=== PATIENT | female | born 1985 | race Caucasian/White ===

== ENCOUNTER 2022-07-01 11:56 | Emergency (ER) | payer OTHER ==
--- OUTSIDE RECORDS SUMMARY | 2022-07-01 12:00 | XMS REPORT | Continuity of Care Document ---
:1985 Author Organization [facility] t Address [address] [place] [address] Care Team Providers Name Role Phone Starr Tabares Attending Clinician Unavailable Starr Tabares Admitting Clinician Unavailable Payers Payer Name Policy Type Policy Number Effective Date Expiration Date S ource Problems This patient has no known problems. Allergies, Adverse Reactions, Alerts Allergy Allergy Status Severity Reaction(s) Onset Inactive Treating Comm ents Source Name Type Date Date Clinician penicill DA Active [place] HIVES 2020-0 [facility] penicill DA Active MO 2020-0 [facility] 00 [facility] penicill DA Active MO 2015-0 [facility]- [facility] 00 [facility] penicill DA Active MO HIVES 2015-0 [facility] G 8-[facility] 00 [facility] Medications This patient has no known medications. Procedures Procedure Date / Time Performed Performing Clinician Mendy holm [id number] 2020-11-03 00:00:00 [facility] [id number] 2020-11-03 00:00:00 [facility] Encounters Start End Encounter Admission Attending Care Care Encounter Source Date/Time Date/Time Type Type Clinicians Facility Department ID 2020-11-19 [id number] 13:42:00 Starr Banda [facility] 2020-11-03 2020-11-05 [id number] [facility] 13:49:00 11:26:00 Starr 85 [facility] Results Test Description Test Time Test Comments Results Result Comments Source PLACENTA THIRD TRIMESTER 2020-11-07 16:45:00 Test Item Value Reference Range Interpretation Comme nts PLACENTA RUN THIRD DATE: 11/07/20 [facility] PAGE 1 RUN TIME: 1836 Specimen Inquiry RUN USER: INTERFACE TRIMESTER CORWIN (test code ENT: DARIUS RAZO CCT #: [id number] LOC: RAKEL U #: [id number] AGE/SX: 35/F ROOM: [id number] RE11/03/20REG DR: Starr Tabares MD : 84 BED: A DIS: 11/05/20 STATUS: DIS IN TLOC: SPEC #: [id number] RECD: 11/06/20 STATUS: SARAH KURTZ #: [id number] HERSON: 11/03/20- SUBM DR: Starr Tabares MD ENTERED: 0 11/06/20 SP TYPE: PLACIII OTHR DR: ORDERED: LEVEL V SURGICA CODES: [id number] - PLACENTA, NO S PROCEDURES: LEVEL V SURGICA (Incomplete) TISSUES: PLACENTA, NOS - PLACENTA CLINICAL HISTORY 35 year old, IUP @ 37.6 weeks, vaginal delivery, nonreassuring monitoring, meconium (krish) F INAL DIAGNOSIS Placenta, 37.6 weeks gestational age, vaginal delivery: - third trimester placenta, 443 gms (35th percentile) - meconium macrophages within membranes - increased syncyt ial knots consistent with maternal vascular malperfusion - trivascular umbilical cord a nd membranes free of inflammation CPT: 26743 [facility] GROSS DESCRIPTION The specimen was received in a container, labeled with the patient's name, unit number and designated "place nta". The following attributes are observed: Cord insertion: 3 cm from margin Cord length: 36 cm Number of vessels: 3 Cord color: Blue-mccarthy and slightly green Other cord findings: None Fe edwar surface findings: Blue-green, wrinkled, glistening Vasculature: Unremarkable blood vasculatu re Membranes rupture site: At the margin Membrane color: Green-mccarthy Other membrane findings: John i-translucent The trimmed placental weight: 443 gm Disk measurement: 19 x 15 x 3.2 cm in greatest dimension Accessory lobes: None CONTINUED ON NEXT PAGE RUN DATE: 11/07/20 [facility] PAGE 2 RUN TIME: 1835 Specimen Inquiry RUN USER: INTERFACE SPEC #: [id number] PATIENT: DARIUS RAZO #[id number] (Continued) ------- GROSS DESCRIPTION (Skyler wylie) Maternal surface: Lobulated and intact Parenchyma: Red, beefy, and spongy Parenchyma lesions: None Cassettes: A1 through A4 ayde/tammie 11/06/20 ---- Signed Bre Leggett MD 11/07/20 1645 END OF REPORT CAPILLARY BLOOD [id number] 19:09:00 Test Item Value Reference Range Interpretation Comments CAPILLARY BLOOD GAS PH (test code 7.141 7.35-7.45 LL = PHC) CAPILLARY BLOOD GAS PCO2 (test 66.1 mmHg code = PCO2C) CAPILLARY BLOOD GAS PO2 (test code 20.5 mmHg = PO2C) CBG HCO3 (test code = HCO3C) 22.0 meq/L CBG BASE EXCESS (test code = BEC) -8.1 CBG O2 SATURATION (test code = 21.7 % SATC) CAPILLARY BLOOD GAS TYPE (test CBLA code = TYPEC) CAPILLARY BLOOD GAS FIO2 (test 21.0 % code = FIO2C) CAPILLARY BLOOD [id number] 19:07:00 Test Item Value Reference Range Interpretation Comments CAPILLARY BLOOD GAS PH (test code 7.269 7.35-7.45 L = PHC) CAPILLARY BLOOD GAS PCO2 (test 49.0 mmHg code = PCO2C) CAPILLARY BLOOD GAS PO2 (test code 13.6 mmHg = PO2C) CBG HCO3 (test code = HCO3C) 21.9 meq/L CBG BASE EXCESS (test code = BEC) -5.3 CAPILLARY BLOOD GAS TYPE (test CBLV code = TYPEC) CAPILLARY BLOOD GAS FIO2 (test 21.0 % code = FIO2C) AG HEPATITIS B [id number] 18:04:00 Test Item Value Reference Range Interpretation Comments AG HEPATITIS B SURFACE (test code NONREACTIVE NONREACTIVE = HBSAG) IS CONSENT FORM SIGNED FOR HIV TESTING? YAB HEPATITIS C [id number] 18:04:00 Test Item Value Reference Range Interpretation Comments AB HEPATITIS C (test code = NONREACTIVE NONREACTIVE HCVAB) SIGNAL TO CUTOFF (test code = <0.02 <0.80 N CUTOFF) IS CONSENT FORM SIGNED FOR HIV TESTING? YAB [id number] 18:04:00 Test Item Value Reference Range Interpretation Comments AB TREPONEMA (test code = TREPAB) NONREACTIVE NONREACTIVE IS CONSENT FORM SIGNED FOR HIV TESTING? YAB HIV 1 18:04:00 Test Item Value Reference Range Interpretation Comments AB HIV 1 2 (test NONREACTIVE NONREACTIVE Done by [facility] code = BSM94QS) 4th Gen HIV Ag/Ab Combo Screen IS CONSENT FORM SIGNED FOR HIV TESTING? YAG HEPATITIS B [id number] 15:41:00 Test Item Value Reference Range Interpretation Comments AG HEPATITIS B SURFACE (test code NONREACTIVE NONREACTIVE = HBSAG) IS CONSENT FORM SIGNED FOR HIV TESTING? YAB HEPATITIS C [id number] 15:41:00 Test Item Value Reference Range Interpretation Comments AB HEPATITIS C (test code = HCVAB) NONREACTIVE SIGNAL TO CUTOFF (test code = CUTOFF) <0.80 IS CONSENT FORM SIGNED FOR HIV TESTING? YAB [id number] 15:41:00 Test Item Value Reference Range Interpretation Comments AB TREPONEMA (test code = TREPAB) NONREACTIVE NONREACTIVE IS CONSENT FORM SIGNED FOR HIV TESTING? YAB HIV 1 15:41:00 Test Item Value Reference Range Interpretation Comments AB HIV 1 2 (test code = JZG06WM) NONREACTIVE IS CONSENT FORM SIGNED FOR HIV TESTING? YCBC W/AUTO [id number] 15:02:00 Test Item Value Reference Range Interpretation Comments WHITE BLOOD CELL (test code = WBC) 18.8 K/mm3 6.5-12.3 H RED BLOOD CELL (test code = RBC) 4.92 M/mm3 3.51-4.69 H HEMOGLOBIN (test code = HGB) 12.7 g/dL 10.1-13.8 N HEMATOCRIT (test code = HCT) 39.1 % 32.5-41.8 N MEAN CELL VOLUME (test code = MCV) 79.5 fL 84.6-96.6 L MEAN CELL HGB (test code = MCH) 25.8 pg 27.3-33.9 L MEAN CELL HGB CONCETRATION (test 32.5 gm/dL 32.0-34.2 N code = MCHC) RED CELL DISTRIBUTION WIDTH (test 19.8 % 12.2-16.3 H code = RDW) PLATELET COUNT (test code = PLT) 424 K/mm3 134-363 H MEAN PLATELET VOLUME (test code = 11.9 fL 9.2-12.7 N MPV) NEUTROPHIL % (test code = NT%) 84.6 % 57.9-77.3 H LYMPHOCYTE % (test code = LY%) 10.1 % 14.5-29.7 L MONOCYTE % (test code = MO%) 4.0 % 3.6-10.2 N EOSINOPHIL % (test code = EO%) 0.6 % 0.0-3.0 N BASOPHIL % (test code = BA%) 0.2 % 0.1-0.9 N NEUTROPHIL # (test code = NT#) 15.9 K/mm3 LYMPHOCYTE # (test code = LY#) 1.9 K/mm3 MONOCYTE # (test code = MO#) 0.8 K/mm3 EOSINOPHIL # (test code = EO#) 0.12 K/mm3 BASOPHIL # (test code = BA#) 0.0 K/mm3 RBC MORPHOLOGY REQUIRED (test code NORMAL NORMAL = RBCM) PLATELET MORPHOLOGY REQUIRED (test NORMAL NORMAL code = PLTMR) COVID 19 Asymptomatic IH [id number] 14:44:00 Test Item Value Reference Range Interpretation Comments COVID 19 NEGATIVE NEGATIVE This test has b een Asymptomatic IH AG authorize d only for the (test code = detection ofpro teins from COVNONPUIAG) SARS-CoV-2, not for any other viruses orpathogens. Ne gative results should be treated as presumptive andconfirmed wi th a molecular assay , if necessary for patientmanageme nt. Negative result s do not rule out COVID- 19 andshould not b e used as the sole basis for treatment orpat ient management deci sions, including infec tion controldecision s. Negative result s should be considered i n thecontext of a patient's recent exposure s, history and thepresence of clinical signs and symptoms consis tent withCOVID-19. T his test has not been FD A cleared or approved; th e test hasbeen authori fanny by FDA under an Emerge ncy Use Authorization(E UA) for use by laborato nader certified under the CLIA thatmeet the re quirements to perform mode rate, high or waivedcomple xity tests. This delmy t is authorized for use at thePoint of Car e (POC), i.e., in patien t care settingsoperati ng under a CLIA Certificat e of Waiver, Certifi kristel ofCompliance, o r Certificate of Accreditation. This test is only authori zed for the duration of thedeclaration that circumstances e xist justifying theauthorizatio n of emergency use o f in vitro diagnostic test sfor detection and/o r diagnosis of CO VID-19 under Sudmssb69 4(b)(1) of the Act, 21 U.S .C. 360bbb-3(b)(1), unless theauthorizatio n is terminated or r evoked sooner.
[2022-07-01 12:59] LABS: Urine Blood 2+ (Negative); Urine Glucose Negative (Negative); Urine Protein 1+ (Negative); Urine Specific Gravity >=1.030 (1.005-1.030)
[2022-07-01 13:11] LABS: Absolute Lymphocytes (CBC) 1.3 K/uL (0.7-4.9); Hematocrit 38.2 % (36.0-45.0); Lymphocytes % 18.4 % (15.3-44.8); MCV 82.2 fL (80-100); MPV 7.8 fL (7.6-11.3); RBC Red Blood Cell Count 4.65 M/uL (3.86-4.86)
[2022-07-01 13:23] LABS: ALT/SGPT 15 U/L (13-56); AST/SGOT 11 U/L (15-37); Albumin 3.2 g/dL (3.4-5.0); Alkaline Phosphatase 73 U/L (45-117); BUN Blood Urea Nitrogen 13 mg/dL (7-18); Bicarbonate 28 mmol/L (21-32); Bilirubin Total 0.3 mg/dL (0.2-1.0); Glomerular Filtration Rate 101 ml/min (=/>90); Glucose Level 104 mg/dL (74-106); Magnesium 2.2 mg/dL (1.6-2.4); Potassium 3.8 mmol/L (3.5-5.1); Protein, Total 7.2 g/dL (6.4-8.2); Sodium Level 139 mmol/L (136-145)
[2022-07-01 13:26] LABS: Troponin High Sensitivity < 3.0 pg/mL (<58.9)
--- NOTE | 2022-07-01 14:23 | EDPHYS ---
Physician Documentation [facility] Name: Uzma Barcenas Age: 37 yrs Sex: Female : 1985 Arrival Date: 07/01/2022 Time: 11:59 Bed 14 Private MD: MARISSA Physician Bernabe Andersen HPI: 07/01 14:59 This 37 yrs old Female presents to ER via Ambulatory with complaints of syncope, kb fatigue. 14:59 The patient has experienced syncope. Onset: The symptoms/episode began/occurred 3 kb day(s) ago. Duration: This was a single episode. Context: the episode(s) was witnessed, by a significant other, , occurred at home, occurred while the patient was standing, Just prior to the episode the patient experienced no apparent symptoms. Associated injury: The patient did not suffer any apparent associated injury. Associated signs and symptoms: Pertinent positives: weakness, Fatigue, blood in stool. Current symptoms: Currently, the patient is not experiencing any symptoms. The patient has experienced similar episodes in the past. The patient has not recently seen a physician. Patient is a 37-year-old female with a history of ulcerative colitis who presents for fatigue and blood in her stool for a couple of weeks. States she had a syncopal episode on Friday so she came in today concerned about anemia. States she had gone from the hot tub to the shower, sat down on a chair that in the shower and when she stood up she had a syncopal episode. was in the shower with her and caught her so there were no injuries associated with the syncopal episode. states patient was out for about 10 seconds. Patient reports the blood in her stool is a common occurrence due to ulcerative colitis and her plan is to follow-up with Dr. Delgado for this. States she came in today to make sure she was not anemic.. 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 - Social history:: Smoking status: Patient denies any tobacco usage or history of. ROS: 15:13 Respiratory: Negative for shortness of breath, cough, wheezing, and pleuritic chest kb pain. 15:13 Constitutional: Positive for fatigue. 15:13 Abdomen/GI: Positive for rectal bleeding. 15:13 Neuro: Positive for syncope, weakness. 15:13 All other systems are negative. Exam: 14:13 Constitutional: This is a well developed, well nourished patient who is awake, alert, kb and in no acute distress. Head/Face: Normocephalic, atraumatic. ENT: Moist Mucous membranes Cardiovascular: Regular rate and rhythm with a normal S1 and S2. No gallops, murmurs, or rubs. No pulse deficits. Respiratory: Respirations even and unlabored. No increased work of breathing. Talking in full sentences Abdomen/GI: Soft, non-tender. No distention Skin: Warm, dry with normal turgor. Normal color. MS/ Extremity: Pulses equal, no cyanosis. Neurovascular intact. Full, normal range of motion. Neuro: Awake and alert, GCS 15, oriented to person, place, time, and situation. Moves all extremities. Normal gait. Psych: Awake, alert, with orientation to person, place and time. Behavior, mood, and affect are within normal limits. 14:13 ECG was reviewed by the Attending Physician. Vital Signs: 12:12 BP 102 / 61; Pulse 86; Resp 15; Temp 98.4; Pulse Ox 100% ; Weight 54.43 kg; Height 5 jl7 ft. (152.40 cm); Pain 4/10; 13:25 BP 94 / 62 LA Supine; Pulse 73; bc6 13:25 BP 100 / 61 LA Sitting; Pulse 70; bc6 13:25 BP 92 / 66 LA Standing; Pulse 89; bc6 13:51 BP 100 / 61; Pulse 69; Resp 16; Pulse Ox 97% on R/A; mb9 15:15 BP 121 / 84; Pulse 64; Resp 16; Pulse Ox 99% on R/A; mb9 12:12 Body Mass Index 23.44 (54.43 kg, 152.40 cm) jl7 MDM: 12:13 Patient medically screened. kb 15:17 Differential Diagnosis: GI bleed, idiopathic syncope, vasovagal episode, Anemia. Data kb reviewed: vital signs, nurses notes. Consideration of Admission/Observation Escalation of care including admission/observation considered. admission considered due to syncope but episode was 3 days ago and patient has no neurodeficits. Historians other than the Patient: Spouse/Significant Other: . Counseling: I had a detailed discussion with the patient and/or guardian regarding: the historical points, exam findings, and any diagnostic results supporting the discharge/admit diagnosis, lab results, the need for outpatient follow up, a family practitioner, a crime scene examiner, to return to the emergency department if symptoms worsen or persist or if there are any questions or concerns that arise at home. ED course: Patient is a 37-year-old female with a history of ulcerative colitis that has had fatigue and blood in stools for couple of weeks, syncopal episode on Friday. States she has no acute abdominal pain. Comes in to make sure she is not anemic. Upon exam patient has no abdominal tenderness and no neurodeficits. Respirations even unlabored, lung sounds clear. Serum labs and EKG done and reviewed. Patient educated to follow-up with Dr. Delgado and PCP at the [facility]. Patient nontoxic in appearance. Tolerating p.o. intake. In agreement with plan of care. Return precautions given and verbal understanding received.. 07/01 12:14 Order name: CBC with Diff 07/01 12:14 Order name: Magnesium 07/01 12:14 Order name: Protime (+inr) 07/01 12:14 Order name: Ptt, Activated 07/01 12:14 Order name: Troponin High Sensitivity 07/01 12:14 Order name: CMP 07/01 12:14 Order name: EKG; Complete Time: 12:14 07/01 12:59 Order name: Urine Dipstick-Ancillary; Complete Time: 13:00 EDMS 07/01 13:19 Order name: CBC with Automated Diff; Complete Time: 13:19 EDMS 07/01 13:26 Order name: Comprehensive Metabolic Panel; Complete Time: 13:28 EDMS 07/01 13:27 Order name: Troponin High Sensitivity; Complete Time: 13:28 EDMS 07/01 13:27 Order name: Magnesium; Complete Time: 13:28 EDMS 07/01 14:13 Order name: Urine --Ancillary (enter results) eb 07/01 14:21 Order name: Urine --Ancillary; Complete Time: 14:23 EDMS 07/01 12:14 Order name: Cardiac monitoring; Complete Time: 12:49 kb 07/01 12:14 Order name: EKG - Nurse/Tech; Complete Time: 13:23 kb 07/01 12:14 Order name: IV Saline Lock; Complete Time: 13:04 kb 07/01 12:14 Order name: Labs collected and sent; Complete Time: 13:04 kb 07/01 12:14 Order name: NPO; Complete Time: 12:49 kb 07/01 12:14 Order name: O2 Per Protocol; Complete Time: 12:49 kb 07/01 12:14 Order name: O2 Sat Monitoring; Complete Time: 12:49 kb 07/01 12:14 Order name: Urine Dipstick-Ancillary (obtain specimen); Complete Time: 13:04 kb 07/01 12:14 Order name: Orthostatics; Complete Time: 13:25 kb EC:13 Rate is 68 beats/min. Rhythm is regular. QRS [place] is Normal. NV interval is normal at kb 112 msec. QRS interval is normal at 72 msec. QT interval is normal at 414 msec. Administered Medications: No medications were administered Disposition: 15:46 Co-signature as Attending Physician, Bernabe Andersen MD I reviewed the patient's care rn provided by the Advanced Practice Provider and agree with the diagnosis and treatment plan. Disposition Summary: 07/01/22 14:22 Discharge Ordered Location: Home kb Condition: Stable kb Diagnosis - Syncope kb - Other fatigue kb Followup: kb - With: Emergency Department - When: As needed - Reason: Worsening of condition Followup: kb - With: Private Physician - When: 2 - 3 days - Reason: Recheck today's complaints, Continuance of care, Re-evaluation by your physician Discharge Instructions: - Discharge Summary Sheet kb - Fatigue kb - Syncope, [id number] kb Forms: - Medication Reconciliation Form kb - Thank You Letter kb - Antibiotic Education kb - Prescription Opioid Use kb Signatures: Dispatcher [employer] EDMS Agatha Cervantes, FARMWORKERS-C FARMWORKERS-Bernabe Verdugo MD MD rn Leal, Jahala, RN RN jl7
--- NOTE | 2022-07-01 14:23 | ER ---
Nurse's Notes [facility] Name: Uzma Barcenas Age: 37 yrs Sex: Female : 1985 Arrival Date: 07/01/2022 Time: 11:59 Bed 14 Private MD: Diagnosis: Syncope;Other fatigue Presentation: 07/01 12:11 Chief complaint: Patient states: Fatigue, abdominal pain, hx of UC, syncopal episode in jl7 shower 3 days ago, bright red rectal bleeding. Coronavirus screen: At this time, the client does not indicate any symptoms associated with coronavirus-19. Ebola Screen: No symptoms or risks identified at this time. Risk Assessment: Do you want to hurt yourself or someone else? Patient reports no desire to harm self or others. Onset of symptoms was June 29, 2022. 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 - Social history:: Smoking status: Patient denies any tobacco usage or history of. Screenin:16 [place] ED Fall Risk Assessment (Adult) History of falling in the last 3 months, mb9 including since admission Yes- physiologic fall (2 pts) Confusion or Disorientation No (0 pts) Intoxicated or Sedated No (0 pts) Impaired Gait No (0 pts) Mobility Assist Device Used No (0 pt) Altered Elimination No (0 pt) Score/Fall Risk Level 0 - 2 = Low Risk Oriented to surroundings, Maintained a safe environment, Educated pt \T\ family on fall prevention, incl call for assistance when getting out of bed. Abuse screen: Denies threats or abuse. Nutritional screening: No deficits noted. Tuberculosis screening: No symptoms or risk factors identified. Assessment: 12:08 Reassessment: MINDI Badillo in triage assessing pt. [facility] 12:48 Reassessment: pt brought back to ER room. mb9 13:00 General: Appears in no apparent distress. Behavior is calm, cooperative, appropriate mb9 for age. Pain: Complains of pain in abdomen. Neuro: Level of Consciousness is awake, alert, obeys commands, Oriented to person, place, time, situation, Appropriate for age. Neuro: Reports weakness. Cardiovascular: Capillary refill < 3 seconds is brisk Patient's skin is warm and dry. Rhythm is regular. Respiratory: Airway is patent Respiratory effort is even, unlabored, Respiratory pattern is regular, symmetrical. GI: Abdomen is flat, non-distended, Bowel sounds present X 4 quads. Abd is soft and non tender X 4 quads. : Urine is clear. EENT: No signs and/or symptoms were reported regarding the EENT system. Derm: Skin is intact, Skin is dry, Skin is normal, Skin temperature is cool. Musculoskeletal: Range of motion: intact in all extremities. 15:15 Reassessment: No changes from previously documented assessment. Patient and/or family mb9 updated on plan of care and expected duration. Pain level reassessed. Patient is alert, oriented x 3, equal unlabored respirations, skin warm/dry/pink. Patient states feeling better. Patient states symptoms have improved. Vital Signs: 12:12 BP 102 / 61; Pulse 86; Resp 15; Temp 98.4; Pulse Ox 100% ; Weight 54.43 kg; Height 5 jl7 ft. (152.40 cm); Pain 4/10; 13:25 BP 94 / 62 LA Supine; Pulse 73; bc6 13:25 BP 100 / 61 LA Sitting; Pulse 70; bc6 13:25 BP 92 / 66 LA Standing; Pulse 89; bc6 13:51 BP 100 / 61; Pulse 69; Resp 16; Pulse Ox 97% on R/A; mb9 15:15 BP 121 / 84; Pulse 64; Resp 16; Pulse Ox 99% on R/A; mb9 12:12 Body Mass Index 23.44 (54.43 kg, 152.40 cm) jl7 ED Course: 11:59 Patient arrived in ED. rg4 12:06 Agatha Cervantes [facility]-C [facility]. kb 12:06 Bernabe Andersen MD is Attending Physician. kb 12:12 Triage completed. jl7 12:12 Arm band placed on right wrist. jl7 12:19 Faiza Willis, RN is Primary Nurse. mb9 13:04 CBC with Diff Sent. mb9 13:04 Magnesium Sent. mb9 13:04 Protime (+inr) Sent. mb9 13:04 Ptt, Activated Sent. mb9 13:04 Troponin High Sensitivity Sent. mb9 13:12 Inserted saline lock: 22 gauge in right antecubital area, using aseptic technique. bc6 15:19 No provider procedures requiring assistance completed. IV discontinued, intact, mb9 bleeding controlled, No redness/swelling at site. Pressure dressing applied. Administered Medications: No medications were administered Outcome: 14:22 Discharge ordered by MD. kb 15:20 Discharged to home ambulatory. mb9 15:20 Condition: stable 15:20 Discharge instructions given to patient, Instructed on discharge instructions, follow up and referral plans. Demonstrated understanding of instructions, follow-up care. 15:21 Patient left the ED. mb9 Signatures: Agatha Cervantes, TELESALES MANAGER-C TELESALES MANAGER-Gilma Arreguin rg4 Loli Barrett RN RN jl7 Faiza Willis, RN RN mb9 Jennifer Lubin [facility]
[2022-07-01 15:42] LABS: Protime INR 1.02
[2022-07-01 16:36] VITALS: TEMP 98.4
--- NOTE | 2022-07-01 16:36 | EKG ---
Test Date: 2022-07-01 Test Time: 13:19:44 Home Housekeeper: JULIANA MEASUREMENT RESULTS: Intervals: Rate: 68 NH: 112 QRSD: 72 QT: 390 QTc: 414 [place]: P: -5 NH: 112 QRS: 72 T: 57 INTERPRETIVE STATEMENTS: Normal sinus rhythm Normal ECG No previous ECG available for comparison Electronically Signed On 07-01-22 16:36:05 MOTOR MECHANIC by William Palacios
[2022-07-01 16:44] VITALS: BP 121/84; O2SAT 99
== END 2022-07-01 15:21 | disposition home or self-care (01) ==
LOC: ER 11:56
DX: R55 Syncope and collapse (principal); R53.83 Other fatigue; K51.90 Ulcerative colitis, unspecified, without complications; Z88.0 Allergy status to penicillin; Z88.5 Allergy status to narcotic agent
CPT/HCPCS: 36415; 80053; 81003; 81025; 83735; 84484; 85025; 85610; 85730; 93005; 99283

== ENCOUNTER 2022-09-30 06:55 | Day surgery (SDC) | payer OTHER ==
[2022-09-26 14:02] LABS: Absolute Lymphocytes (CBC) 1.5 K/uL (0.7-4.9); Hematocrit 36.4 % (36.0-45.0); Lymphocytes % 24.7 % (15.3-44.8); RBC Red Blood Cell Count 4.73 M/uL (3.86-4.86)
[2022-09-26 14:30] LABS: Albumin 3.4 g/dL (3.4-5.0); Bilirubin Direct 0.1 mg/dL (0-0.2); Bilirubin Indirect, Calculated 0.3 mg/dL (0.2-0.8); Bilirubin Total 0.4 mg/dL (0.2-1.0); Potassium 3.6 mEq/L (3.5-5.1); Protein, Total 7.8 g/dL (6.4-8.2)
[2022-09-30] MEDS ORDERED: Ringers Lactate 1,000 ML IV ONE ×2 (07:42→09:32)
[2022-09-30 08:10] LABS: Urine Specific Gravity/Preg >1.030 (1.005-1.030)
[2022-09-30] MEDS: CEFOXITIN SODIUM 1 GM/VIAL ONE ×2 (08:12→08:29)
[2022-09-30] MEDS ORDERED: FENTANYL CITR 100 MCG/2 ML ONE (08:25)
[2022-09-30] MEDS ORDERED: dexAMETHasone 10 MG/ML VIAL ONE (08:26)
[2022-09-30] MEDS ORDERED: LIDOCAINE 2% MPF 5 ML VIAL ONE (08:26)
[2022-09-30] MEDS ORDERED: ROCURONIUM 50 MG/5 ML VIAL IV ONE (08:26)
[2022-09-30] MEDS ORDERED: KETOROLAC 30 MG/ML INJ ONE (08:26)
[2022-09-30] MEDS ORDERED: ONDANSETRON 4 MG/2 ML VIAL ONE (08:27)
[2022-09-30] MEDS ORDERED: propofoL 200 MG/20 ML VIAL IV ONE (08:27)
[2022-09-30] MEDS ORDERED: MIDAZOLAM HCL 2 MG/2 ML INJ ONE (08:27)
[2022-09-30] MEDS ORDERED: NS 0.9% VIAL 10 ML ONE (09:08)
[2022-09-30] MEDS ORDERED: GLYCOPYRROLATE 0.2 MG/ML SYR ONE (09:25)
[2022-09-30] MEDS ORDERED: NEOSTIGMINE 1 MG/ML -10 ML VIAL ONE (09:26)
--- NOTE | 2022-09-30 09:31 | P.OP ---
Date of Service: 09/30/22 Preop diagnosis: Chronic cholecystitis, biliary dyskinesia Postop diagnosis: Same with adhesions Procedure performed: Laparoscopic cholecystectomy and lysis of additions Surgeon: Silver Mcgowan MD Shuttle Car Operator: AARON Garcia Estimated blood loss: Minimal Specimen: Gallbladder Findings: As above Anesthesia: General Complications: None Drains: None Fluids and blood products: Nonapplicable Disposition: Recovery room Operative note: Patient brought to the OR and placed in supine position. General anesthesia begun. Patient prepped and draped in the usual sterile fashion. Marcaine 0.5% infiltrated locally. 15 blade used to make a 1 cm infraumbilical midline incision. Subcutaneous tissue divided. Fascia identified and divided. #1 Vicryl stay suture placed. Peritoneal cavity entered with sharp and blunt dissection. 12 mm trocar placed into the peritoneal cavity under direct vision. Pneumoperitoneum established. Under direct vision, three 5 mm trocars placed. 1 trocar placed in the epigastric region just to the right of midline. 2 trocars placed in the right subcostal region. Laparoscopy revealed adhesions to the gallbladder which required lysis via cautery and blunt dissection. Fundus of the gallbladder retracted superiorly. Infundibulum identified and retracted inferolaterally. Cystic duct cystic artery clearly identified with blunt dissection. Clips placed and both structures divided. Gallbladder removed from the liver bed utilizing cautery. Gallbladder retrieved through the umbilicus via Endo Catch bag. Gallbladder sent to pathology. Pneumoperitoneum reestablished and there was no evidence of bleeding or bile leakage appreciated. All trocars were removed under direct vision. Stay sutures were tied to each other to reapproximate the fascial defect. Subcutaneous wounds irrigated and bleeding controlled cautery. 3-0 chromic used to approximate subcutaneous tissue and close skin. Sterile dressing applied and patient awakened. Patient taken to recovery room in good general condition. CC: Dr. Delgado's office
[2022-09-30] MEDS ORDERED: HYDROCODONE/APAP 7.5/325 MG TAB PO PRN (09:33)
[2022-09-30] MEDS: HYDROMORPHONE HCL 1 MG/ML INJ ONE ×4 (09:54→10:13)
[2022-09-30] MEDS ORDERED: HYDROMORPHONE HCL 1 MG/ML INJ ONE (09:58)
[2022-09-30 10:42] VITALS: BP 116/62; TEMP 97.7; O2SAT 98
[2022-09-30] MEDS ORDERED: HYDROCODONE/APAP 7.5/325 MG TAB ONE (10:55)
== END 2022-09-30 11:27 | disposition home or self-care (01) ==
LOC: OR 06:55
PROVIDERS: ATTEND Surgery
PROC: 0FT44ZZ Resection of Gallbladder, Percutaneous Endoscopic Approach (ICD-10-PCS; principal; 2022-09-30 08:30)
DX: K81.1 Chronic cholecystitis (principal); K82.8 Other specified diseases of gallbladder
CPT/HCPCS: 85025; 80048; 36415; 81025; 80076; 88304; 83690; 47600; A4216; J2704; J2710; J2001; J2250; J3010; J1100; J1170 ×2; J0694; J2405; J7120 ×2

== ENCOUNTER 2022-12-26 17:49 | Emergency (ER) | payer OTHER ==
--- OUTSIDE RECORDS SUMMARY | 2022-12-26 17:52 | XMS REPORT | Continuity of Care Document ---
:1985 Author Organization [facility] t Address [address] [place] [address] Care Team Providers Name Role Phone Pcp, Patient Does Not Have A Primary Care Physician +[id number] Starr Tabares Attending Clinician Unavailable OLIVIA PARK Attending Clinician Unavailable 2, Adc Pob Amb Infusion Room Attending Clinician Unavailable Olivia Park MD Attending Clinician 2, Adc Infusion Chair Attending Clinician Unavailable Doctor Unassigned, [place] Attending Clinician Unavailable Starr Tabares Admitting Clinician Unavailable Payers Payer Name Policy Type Policy Number Effective Date Expiration Date S ource Problems Condition Condition Condition Status Onset Resolution Last Treating Co mments Source Name Details Category Date Date Treatment Clinician Date 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 09-15 00:00: Hospita 00 l 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 06-05 st without without 00:00: Hospita complicati complicati 00 l on on Allergies, Adverse Reactions, Alerts Allergy Allergy Status Severity Reaction(s) Onset Inactive Treating Comm ents Source Name Type Date Date Clinician PENICILL Drug Active Rash Univers INS Class 2-23 ity of 00:00: [address] Penicill Propensi Active Rash Univer s ins ty to 07-04 ity of adverse 00:00: [place] reaction 00 [facility] penicill DA Active [place] HIVES 2020- [facility] G [facility] 00:[facility]: [facility] [place] penicill DA Active [place] 2020- [facility] G 6-[facility] 00:[facility]: [facility] [place] Penicill Propensi Active Rash Method i ins ty to 06-05 st adverse 00:00: Hospita reaction 00 l s to drug penicill DA Active MO 2015- [facility] in G 8-20 [facility] 00:00: [facility] [place] penicill DA Active [place] HIVES 2015- [facility] in G 8-20 [facility] 00:00: [facility] [place] NO KNOWN Drug Active Univers ALLERGIE Class ity of [facility] Social History Social Habit Start Date Stop Date Quantity Comments Source [facility] Exposure to 2022-08-19 2022-08-29 Not sure University of SARS-CoV-2 (event) 00:00:00 10:14:00 [facility] History of Social 2016-11-11 2016-11-[address] function 00:00:00 00:00:00 Hospital Alcohol intake 2016-08-21 2016-08-21 Current drinker [facility] 00:00:00 00:00:00 of alcohol Hospital (finding) Tobacco use and 2016-06-05 2016-06-05 Smokeless [facility] exposure 00:00:00 00:00:00 tobacco non-user Hospital Alcohol Comment 2016-06-05 2016-06-05 socially [facility] 00:00:00 00:00:00 Hospital Sex Assigned At [birth year] [facility] 00:00:00 00:00:00 Hospital Smoking Status Start Date Stop Date Source Tobacco smoking consumption Univ [facility] Never smoked tobacco [facility] Medications Ordered Filled Start Stop Current Ordering Indication Dosage Frequency Signature Comments Components Source Medication Medication Date Date Medication? Clinician (SIG) Name Name vedolizumab 2022- No [id number] 300mg 300 mg, IV Univers (ENTYVIO) 8 0810 Infusion, ity of 300 mg in 18:45: 19:45 [place]CE[place] NaCl 0.9% 00 :00 dose, On Medica l (NS) 250 mL [place] [facility] IV infusion 12/19/22 at 1345, Administer over 30 Minutes, 250 mL vedolizumab 2022-0 2022- No [id number] 300mg 300 mg, IV Univers (ENTYVIO) 12-19 0810 Infusion, ity of 300 mg in 18:45: 19:45 [place]CE[place] NaCl 0.9% 00 :00 dose, On Medica l (NS) 250 mL [facility] IV infusion 12/19/22 at 1345, Administer over 30 Minutes, 250 mL vedolizumab 2022-0 2022- No [id number] 300mg 300 mg, IV Univers (ENTYVIO) 10-24 Infusion, ity of 300 mg in 17:48: 18:55 [place]CE, [place] NaCl 0.9% 00 :00 dose, On Medica l (NS) 250 mL [facility] IV infusion 10/24/22 at 1300, Administer over 30 Minutes, 250 mL vedolizumab 2022-0 2022- No [id number] 300mg 300 mg, IV Univers (ENTYVIO) 08-29 Infusion, ity of 300 mg in 16:00: 16:28 [place]CE[place] NaCl 0.9% 00 :00 dose, On Medica l (NS) 250 mL [facility] IV infusion 08/29/22 at 1100, Administer over 30 Minutes, 250 mL vedolizumab 2022-0 2022- No [id number] 300mg 300 mg, IV Univers (ENTYVIO) 07-04 Infusion, ity of 300 mg in 20:00: 20:40 [place]CE, [place] NaCl 0.9% 00 :00 dose, On Medica l (NS) 250 mL [facility] IV infusion 07/04/22 at 1400, Administer over 30 Minutes, 250 mL sertraline Yes 75mg QD Take 75 mg M ethodi (ZOLOFT) 50 4-[address] MG tablet 15:35: daily. Hospit a 06 l azaTHIOprin Yes 100mg QD Take 100 M ethodi e (IMURAN) 4-[address] 50 mg 00:00: mouth Hospita tablet 00 daily. l Vital Signs Vital Name Observation Time Observation Value Comments Source Systolic blood 2022-12-19 18:21:00 99 mm[Hg] Univer sity of pressure [place] [facility] Diastolic blood 2022-12-19 18:21:00 66 mm[Hg] Unive rsity of pressure [place] [facility] Heart rate 2022-12-19 18:21:00 82 /min [facility] [place] [facility] Body temperature 2022-12-19 18:21:00 36.78 Saba Univ ersity [facility] [place] [facility] Respiratory rate 2022-12-19 18:21:00 18 /min Univ ers[facility] [place] [facility] Body height 2022-12-19 18:21:00 152.4 cm [facility] [place] [facility] Body weight 2022-12-19 18:21:00 52.164 kg [facility] [place] [facility] BMI 2022-12-19 18:21:00 22.46 kg/m2 [facility] [place] [facility] Oxygen saturation in 2022-12-19 18:21:00 98 /min University of Arterial blood by [place] [employer] cherie Pulse oximetry Branch Systolic blood 2022-10-24 17:44:00 105 mm[Hg] Univer sity of pressure [place] [facility] Diastolic blood 2022-10-24 17:44:00 63 mm[Hg] Unive rsity of pressure [place] [facility] Heart rate 2022-10-24 17:44:00 78 /min [facility] [place] [facility] Body temperature 2022-10-24 17:44:00 36.61 Saba Univ ers[facility] [place] [facility] Respiratory rate 2022-10-24 17:44:00 18 /min Univ ers[facility] [place] [facility] Body weight 2022-10-24 17:44:00 52.164 kg [facility] [place] [facility] BMI 2022-10-24 17:44:00 22.46 kg/m2 [facility] [place] [facility] Oxygen saturation in 2022-10-24 17:44:00 99 /min University of Arterial blood by [employer] cherie Pulse oximetry Branch Systolic blood 2022-08-29 14:59:00 121 mm[Hg] Univer sity of pressure [place] [facility] Diastolic blood 2022-08-29 14:59:00 76 mm[Hg] Unive rsity of pressure [place] [facility] Heart rate 2022-08-29 14:59:00 85 /min [facility] [place] [facility] Body temperature 2022-08-29 14:59:00 36.33 Saba [facility] ersity of [place] [facility] Respiratory rate 2022-08-29 14:59:00 18 /min Univ ersity [facility] [place] [facility] Body weight 2022-08-29 14:59:00 52.164 kg [facility] [place] [facility] BMI 2022-08-29 14:59:00 22.46 kg/m2 [facility] [place] [facility] Oxygen saturation in 2022-08-29 14:59:00 98 /min University of Arterial blood by [facility] Pulse oximetry Branch Systolic blood 2022-07-04 19:37:00 111 mm[Hg] Univer sity of pressure [place] [facility] Diastolic blood 2022-07-04 19:37:00 67 mm[Hg] Unive rsity of pressure [place] [facility] Heart rate 2022-07-04 19:37:00 70 /min [facility] [place] [facility] Body temperature 2022-07-04 19:37:00 36.56 Saba [facility] ersity of [place] [facility] Respiratory rate 2022-07-04 19:37:00 17 /min [facility] ersity of [place] [facility] Body height 2022-07-04 19:37:00 152.4 cm [facility] [place] [facility] Body weight 2022-07-04 19:37:00 54.432 kg [facility] [place] [facility] BMI 2022-07-04 19:37:00 23.44 kg/m2 [facility] [place] [facility] Oxygen saturation in 2022-07-04 19:37:00 100 /min University of Arterial blood by [facility] Pulse oximetry Branch Procedures Procedure Date / Time Performed Performing Clinician [facility] e CONSENT/REFUSAL FOR 2022-08-29 14:52:40 Doctor Unassigned, No [facility] DIAGNOSIS AND Name Medical Branch TREATMENT ASSIGNMENT OF BENEFITS 2022-08-29 14:52:29 Doctor Unassigned, No [facility] Name Medical Branch ASSIGNMENT OF BENEFITS 2022-07-04 19:29:51 Doctor Unassigned, No [facility] Name Medical Branch [id number] 2020-11-03 00:00:00 [place] [facility] [id number] 2020-11-03 00:00:00 [place] [facility] Plan of Care Planned Activity Planned Date Details Comments Source Future Scheduled 2022-12-13 COVID-[address] [facility] Test 11:20:09 (#1) [code = COVID-19 VACCINE (#1)] Future Scheduled 2022-12-13 [facility] for [facility] Test 11:20:09 malignant neoplasm of cervix (procedure) [code = 800612045] Future Scheduled 2022-12-13 INFLUENZA VACCINE [facility] Test 11:20:09 [code = INFLUENZA VACCINE] Encounters Start End Encounter Admission Attending Care Care Encounter Source Date/Time Date/Time Type Type Clinicians Facility Department ID 2020-11-19 Inpatient WILLIAM Tabares, [facility] [id number] [facility] 13:42:00 Starr Banda [facility] 2022-12-19 2022-12-19 Nurse 2, Adc Pob Amb Infusion Room [facility] 1.2.840.114 [id number] Univers 13:00:00 15:15:55 Visit Olivia Park [id number] [facility] [place] [id number] [place] [address] 2022-12-19 2022-12-19 Outpatient Samuel PARK [facility] [id number] Univers 13:00:00 13:00:[address] [facility] 2022-10-24 2022-10-24 Nurse 2, Adc Infusion Chair [facility] 1.2. 840.114 [id number] Univers 13:00:00 14:30:00 Visit Olivia Park [id number] [facility] 4[place]2.[place].2.[place] [id number] [address] 2022-10-24 2022-10-24 Outpatient Samuel PARK [facility] [id number] Univers 13:00:00 13:00:[address] [facility] 2022-10-24 2022-10-24 Outpatient Samuel PARK [facility] [id number] Univers 13:00:00 13:00:[address] [facility] 2022-08-292022-08-29 Nurse 2, Adc Infusion Chair [facility] 1.2. 840.114 [id number] Univers 13:00:00 14:30:00 Visit Xavier Olivia NELSON [id number] ity [place] [id number] [address] 2022-08-29 2022-08-29 [facility] [id number] Univers 13:00:00 13:00:[address] [facility] 2022-08-29 2022-08-29 Orders Doctor SHAMAR 1.2.840.114 [id number] Univers 00:00:00 00:00:00 Only Unassigned, JULI 350.1.13.10 ity of [place] [facility] 4.2.7.2.686 Angel Luis as [id number] [address] 2022-07-04 2022-07-04 Nurse 2, Adc Infusion Chair [facility] 1.2. 840.114 [id number] Univers 13:00:00 14:30:00 Visit Park Olivia NELSON [id number] [facility] [place] [id number] [address] 2022-07-04 2022-07-04 [facility] [id number] Univers 13:00:00 13:00:[address] [facility] 2022-07-04 2022-07-04 Orders Doctor SHAMAR 1.2.840.114 [id number] Univers 00:00:00 00:00:00 Only Unassigned, JULI 350.1.13.10 ity of [place] [facility] 4.2.7.2.686 Angel Luis as [id number] [address] 2020-11-03 2020-11-05 Inpatient ELIZABETH Tabares, [facility] OB [id number] [facility] 13:49:00 11:26:00 Starr Henley [facility] s [facility] Results Test Description Test Time Test Comments Results Result Comments Source PLACENTA THIRD TRIMESTER 2020-11-07 16:45:00 Test Item Value Reference Range Interpretation Comme nts PLACENTA RUN THIRD DATE: 11/07/20 [facility] PAGE 1 RUN TIME: 1835 Specimen Inquiry RUN USER: INTERFACE TRIMESTER CORWIN (test code ENT: DARUIS RAZO CCT #: [id number] LOC: DENISSE U #: [id number] AGE/SX: 35/F ROOM: = [id number] RE11/03/20REG DR: Starr Tabares MD : 83 BED: A DIS: 11/05/20 STATUS: DIS IN TLOC: SPEC #: [id number] RECD: 11/06/20 STATUS: SARAH KURTZ #: [id number] HERSON: 11/03/20- SUBM DR: Starr Tabares MD SP TYPE: PLACIII OTHR : ORDERED: LEVEL V SURGICA CODES: [id number] - PLACENTA, NO S PROCEDURES: LEVEL V [...] a nd membranes free of inflammation CPT: 22638 [facility] GROSS DESCRIPTION The specimen was received in a container, labeled with the patient's name, unit number and designated "place nta". The following attributes are observed: Cord insertion: 3 cm from margin Cord length: 36 cm Number of vessels: 3 Cord color: Blue-mccarthy and slightly green Other cord findings: None F etal surface findings: Blue-green, wrinkled, glistening Vasculature: Unremarkable [...] Specimen Inquiry RUN USER: INTERFACE SPEC #: [id number] PATIENT: DARIUS RAZO #[id number] (Continued) ------- GROSS DESCRIPTION (C ontinued) Maternal surface: Lobulated and intact Parenchyma: Red, beefy, and spongy Parenchyma lesions: None Cassettes: A1 through A4 ayde/tammie 11/06/20 ---- Signed Bre Leggett MD 11/07/20 1645 END OF REPORT CAPILLARY BLOOD [id number] 19:09:00 Test Item Value Reference Range Interpretation [...] 21.0 % code = FIO2C) CAPILLARY BLOOD [id number] 19:07:00 Test Item Value Reference Range Interpretation [...] % code = FIO2C) AG HEPATITIS B [id number] 18:04:00 Test Item Value Reference Range Interpretation Comments AG HEPATITIS B SURFACE (test code NONREACTIVE NONREACTIVE = HBSAG) IS CONSENT FORM SIGNED FOR HIV TESTING? YAB HEPATITIS C [id number] 18:04:00 Test Item Value Reference Range Interpretation Comments AB HEPATITIS C (test code = NONREACTIVE NONREACTIVE HCVAB) SIGNAL TO CUTOFF (test code = <0.02 <0.80 N CUTOFF) IS CONSENT FORM SIGNED FOR HIV TESTING? YAB [id number] 18:04:00 Test Item Value Reference Range Interpretation Comments AB TREPONEMA (test code = TREPAB) NONREACTIVE NONREACTIVE IS CONSENT FORM SIGNED FOR HIV TESTING? YAB HIV 1 18:04:00 Test Item Value Reference Range Interpretation Comments AB HIV 1 2 (test NONREACTIVE NONREACTIVE [facility] = [id number]) 4th Gen HIV Ag/Ab Combo Screen IS CONSENT FORM SIGNED FOR HIV TESTING? YAG HEPATITIS B [id number] 15:41:00 Test Item Value Reference Range Interpretation Comments AG HEPATITIS B SURFACE (test code NONREACTIVE NONREACTIVE = HBSAG) IS CONSENT FORM SIGNED FOR HIV TESTING? YAB HEPATITIS C [id number] 15:41:00 Test Item Value Reference Range Interpretation Comments AB HEPATITIS C (test code = HCVAB) NONREACTIVE SIGNAL TO CUTOFF (test code = CUTOFF) <0.80 IS CONSENT FORM SIGNED FOR HIV TESTING? YAB [id number] 15:41:00 Test Item Value Reference Range Interpretation Comments AB TREPONEMA (test code = TREPAB) NONREACTIVE NONREACTIVE IS CONSENT FORM SIGNED FOR HIV TESTING? YAB HIV 1 15:41:00 Test Item Value Reference Range Interpretation Comments AB HIV 1 2 (test code = MIJ77UV) NONREACTIVE IS CONSENT FORM SIGNED FOR HIV TESTING? YCBC W/AUTO [id number] 15:02:00 Test Item Value Reference Range Interpretation [...] code = PLTMR) COVID 19 Asymptomatic IH [id number] 14:44:00 Test Item Value Reference Range Interpretation [...] or approved; th e test hasbeen authori zed by FDA under an Emerge ncy Use [...] and/o r diagnosis of CO VID-19 under Nqaizds81 4(b)(1) of the Act, 21 U.S .C. 360bbb-3(b)(1), unless theauthorizatio n is terminated or r evoked sooner. Notes Date/Time Note Provider Source 2020-11-05 07:02:00-00:00 [facility]) OB Postpart Progr Note REPORT#:[id number] REPORT STATUS: Signed DATE:11/05/20 TIME: 701 PATIENT: DARIUS RAZO UNIT #: [id number] ROOM/BED: [address] : 84 AGE: 35 SEX: F ATTEND: Anthony Tabares MD ADM AUTHOR: Ashleigh Bone DO * ALL edits or amendments must be made on the el [employer]/computer document * Subjective Subjective Admission EGA: Weeks: 37 Days: 6 EGA at delivery (wks/days): 37 weeks (6d) Status/day: post (day 2) Comments: Doing well without complaint s. Pain well controlled. Voiding freely. Tolerating reg diet, no n/v. Baby doing well at bedside. Objective Nursing Documentation Review Nursing data: The data set between the solid lines has been im ported from nursing documentation. Any exceptions have been noted be low under Provider comments. Feeding preference: Post hemorrhage risk score: Low Risk for Hemorrhage. Provider comments on imported nursing data: [] General VS: Vital Signs Date Temp Pulse Resp B/P B/P Mean Pulse Ox FiO2 11/04 97.8-98.3 83-89 18-20 122-131/71-76 Last Documented: Result Date Time B/P 131/76 11/04 2325 Temp 97.8 11/04 2326 Pulse 89 11/04 2326 Resp 18 11/04 2326 Pulse Ox 100 11/04 0130 B/P Mean 98.0 11/03 2151 PATIENT WEIGHT: Weight (lb): 160 Weight (oz): Weight (kg): 72.378594 Physical Exam Lungs: clear to auscultation, unlabored breathin g Neuro: Exam: alert, oriented x3, normal speech Abdomen: soft, no abnormal tenderness, no guardi ng, no rebound tenderness Incision site: none Uterus: firm, non-tender Fundus: firm, at the umbilicus, non-tender Lacerations: Perineal laceration(s): 1st Degree w/vagina, le ft periurethral Lower extremities: Edema: trace Calf tenderness: negative Diagnosis, Assessment Plan Diagnosis, Assessment Plan Assessment: nml progress, breast feed ing w/o diff Plan: routine care, discharge today Consultation(s): Consultation performed: anesthesia Electronically Signed by Ashleigh Bone DO on 0 11/05/20 at 0703 RPT #:[id number] END OF REPORT 2020-11-04 06:25:00-00:00 [facility] OB Postpart Progr Note REPORT#:[id number] REPORT STATUS: Signed DATE:11/04/20 TIME: 624 PATIENT: DARIUS RAZO UNIT #: [id number] ROOM/BED: [address] : 84 AGE: 35 SEX: F ATTEND: Anthony Tabares MD ADM AUTHOR: Chica Joseph MD * ALL edits or amendments must be made on the [employer]/computer document * Subjective Subjective Admission EGA: Weeks: 37 Days: 6 EGA at delivery (wks/days): 37 weeks (6d) Status/Day: post (d1) Patient reports: Patient reports: Yes no complaints, Yes normal lochia, Yes pain management effective, Yes tolerating po well, Yes voiding well, Ye s voiding without pain, Yes tolerating ambulation, Yes flatus, No b owel movement, No nausea, No vomiting, No excessive bleeding, No abdominal pain, No perineal pain, N o difficulty nursing, No headache, No blurred vision Objective Nursing Documentation Review Nursing Data: The data set between the solid lines has been im ported from nursing documentation. Any exceptions have been noted be low under Provider comments. Feeding preference: Post hemorrhage risk score: Low Risk for Hemorrhage. Provider comments on imported nursing data: [] General VS: Vital Signs: Date Time Temp Pulse Resp B/P B/P Pulse O2 O2 F low FiO2 Mean Ox Delivery Rate 11/04 0130 98.0 72 20 119/73 100 11/03 2315 98.2 70 20 128/73 100 11/03 2215 98.0 76 20 123/71 100 11/03 215 98.0 11/03 2150 92 129/79 11/04 2135 104.0 11/04 2135 93 138/83 11/03 2126 101.0 11/03 2126 102 130/84 11/03 2117 96.0 11/03 2117 91 133/73 11/03 2050 16 11/03 2050 96.0 11/03 2050 90 132/71 11/04 2035 88.0 11/04 2035 93 14 128/62 11/03 2020 92.0 11/03 2020 84 16 133/64 11/03 2006 93.0 11/03 2006 89 15 131/66 11/04 1951 16 11/04 1951 94.0 11/04 1951 81 132/69 11/03 1936 16 06/25 1936 91.0 06/25 1936 89 130/66 06/25 1921 16 06/25 1921 93.0 06/ 1921 91 134/68 06/25 1906 95.0 06/25 1906 96 148/66 06/25 1902 99.2 06/25 1752 95.0 06/25 1752 102 126/79 06/ 1736 77.0 06/ 1736 93 116/58 06/ 1721 99.0 06/ 1721 103 137/74 06/25 1708 107.0 06/25 1708 93 137/89 06 1652 88.0 06/ 1652 91 133/61 06/ 1634 85.0 06/ 1634 97.9 87 15 119/61 06/ 1630 85.0 06/25 1630 97 131/59 06/ 1624 86.0 06/ 1624 83 123/63 06/ 1619 101.0 06 1619 86 131/80 06 1615 94.0 06 1615 90 127/73 06/25 1610 91.0 06/25 1610 92 129/65 06/25 1605 95.0 06/25 1605 92 134/70 06/25 1600 102.0 06/25 1600 96 132/81 06/25 1554 87.0 06/25 1554 109 119/64 06/25 1552 79.0 06/25 1552 104 115/60 06/25 1550 81.0 06/25 1550 104 117/59 06/25 1548 80.0 06/25 1548 107 115/58 06/25 1546 83.0 06/25 1546 107 122/62 06/25 1544 86.0 06/25 1544 93 122/65 06/25 1542 86.0 06/25 1542 90 123/63 06/25 1540 82.0 06/25 1540 93 113/63 06/25 1538 63.0 06/25 1538 92 91/52 06/25 1536 52.0 06/25 1536 82 77/40 06/25 1534 66.0 06/25 1534 92 97/52 06/25 1532 69.0 06/25 1532 88 101/50 06/25 1530 93.0 06/25 1530 88 130/69 06/25 1528 93.0 11/03 1528 85 128/71 11/03 1526 95.0 11/03 1526 82 131/75 11/03 1523 100.0 11/03 1523 78 136/79 11/03 1522 100.0 11/03 1522 82 130/81 11/03 1421 104.0 11/03 1421 88 133/86 11/03 1420 98.2 15 11/03 1328 98.1 20 PATIENT WEIGHT: Weight (lb): 160 Weight (oz): Weight (kg): 72.875984 Physical Exam Breasts: Breasts: non-tender, soft Cardiac: normal sinus rhythm, no clinically sig murmur Lungs: clear to auscultation Neuro: Exam: alert, oriented x3, normal speech Abdomen: soft, no abnormal tenderness, no guardi ng, no rebound tenderness, normoactive bowel sounds Incision site: none Fundus: firm, at the umbilicus, non-tender Lochia: normal Lacerations: Perineal laceration(s): 1st Degree w/vagina, le ft periurethral Lower extremities: Edema: trace Calf tenderness: negative Result Findings/Data: Laboratory Tests: 11/03 11/03 11/03 11/03 1900 1859 1433 1348 Blood Gas Capillary pH (7.35 - 7.45) 7.141 *L 7.269 L Capillary pCO2 (mmHg) 66.1 49.0 Capillary pO2 (mmHg) 20.5 13.6 Capillary HCO3 (meq/L) 22.0 21.9 Capillary Base Excess -8.1 -5.3 Capillary O2 Sat Calc (%) 21.7 Patient On Oxygen CBLA CBLV FiO2 (%) 21.0 21.0 Hematology WBC (6.5 - 12.3 K/mm3) 18.8 H RBC (3.51 - 4.69 M/mm3) 4.92 H Hgb (10.1 - 13.8 g/dL) 12.7 Hct (32.5 - 41.8 %) 39.1 MCV (84.6 - 96.6 fL) 79.5 L MCH (27.3 - 33.9 pg) 25.8 L MCHC (32.0 - 34.2 gm/dL) 32.5 RDW (12.2 - 16.3 %) 19.8 H Plt Count (134 - 363 K/mm3) 424 H MPV (9.2 - 12.7 fL) 11.9 Neut % (Auto) (57.9 - 77.3 %) 84.6 H Lymph % (Auto) (14.5 - 29.7 %) 10.1 L [place] % (Auto) (3.6 - 10.2 %) 4.0 Eos % (Auto) (0.0 - 3.0 %) 0.6 Baso % (Auto) (0.1 - 0.9 %) 0.2 Neut # (Auto) (K/mm3) 15.9 Lymph # (Auto) (K/mm3) 1.9 [place] # (Auto) (K/mm3) 0.8 Eos # (Auto) (K/mm3) 0.12 Baso # (Auto) (K/mm3) 0.0 Serology Treponema pallidum Ab (NONREACTIVE) NONREACTIVE Hep Bs Antigen (NONREACTIVE) NONREACTIVE Hepatitis C Antibody (NONREACTIVE) NONREACTIVE Hep C Ab Signal/Cutoff (<0.80) <0.02 HIV 1 2 Antibody (NONREACTIVE) NONREACTIVE SARS-CoV-2 Ag (Rapid) (NEGATIVE) NEGATIVE Results: labs reviewed, vitl signs stable Diagnosis, Assessment Plan Diagnosis, Assessment Plan Problem List/A P: 1. with 37 or more completed weeks ge station 2. Spontaneous onset of labor 3. AMA (advanced maternal age) multigravida 35+ Assessment: nml progress, breast feed ing w/o diff Plan: routine care, discharge tomorro w Consultation(s): Consultation performed: anesthesia Electronically Signed by Chica Joseph MD on at 0845 RPT #:[id number] END OF REPORT 2020-11-03 19:33:00-00:00 [facility] ([facility]) OB Delivery Note REPORT#:[id number] REPORT STATUS: Signed DATE:11/03/20 TIME: 1932 PATIENT: DARIUS RAZO UNIT #: [id number] ROOM/BED: [address] : 84 AGE: 35 SEX: F ATTEND: Anthony Tabares MD ADM AUTHOR: Chica Joseph MD * ALL edits or amendments must be made on the el [employer]/computer document * OB Delivery Nursing Documentation Review Nursing data: The data set between the solid lines has been im ported from nursing documentation. Any exceptions have been noted be low under Provider comments. _ ROM date: 11/03/20 ROM time: 1746 Membranes rupture method: SROM Amniotic fluid color: Meconium Amniotic fluid amount: Steroids prior to arrival: Antibiotic prophylaxis given: Post hemorrhage risk score: Low Risk for Hemorrhage. Delivery date infant A: 11/03/20 Delivery time A: 1851 Birthweight (gm) A: Weight (lb) A: Weight (oz) infant A: Gender A: Female 1 minute A: 8 5 minutes A: 9 10 minutes infant A: Cord pH obtained A: Vacuum time infant A: Vacuum # pulls A: Vacuum # popoffs A: QBL at delivery: __ Provider comments on imported nursing data: [] Pre-delivery GBS status: GBS status: negative [place] evaluation at delivery: team Admission EGA: Weeks: 37 Days: 6 EGA at delivery (wks/days): 37 weeks (6d) Admission indication: spontaneous labor Baby A Information Baby A information Delivery date: 11/03/20 status: live born Wt of baby (lbs/oz): 7/ Gender: female 1 minute: 8 5 minutes: 9 Presentation: vertex ABG details Baby A Cord blood gases: collected Nuchal cord Baby A Nuchal cord: no Vaginal Delivery Vaginal delivery: Labor: spontaneous Vaginal delivery: operative vag del vacuum Amniotic fluid: meconium (thick) Anesthesia type: epidural anesthesia Episiotomy: none Episiotomy repair: no Laceration repair: yes, 3-0 suture (vicryl) Placenta: spontaneous, intact, sent to patholog y Post delivery meds used: oxytocin Count: correct Vaginal packing: No Mother's condition: mother stable Infant's condition: stable in room Lacerations: Perineal laceration(s): 1st Degree w/vagina, le ft periurethral Extraction details OVD performed: yes OVD type: Kiwi Vacuum Indications: indications Pt counseling: indications discussed, risks dis cussed, questions answered, patient consent obtained Extraction assessment: cervix completely dilate d, nursery anesth notified, mat-fet size appr for alphonso, bladder empty Degree of rotation: 0-45 degrees station: low (+2 to +4) Position of head: ROT to BRENT Episiotomy or incision: no incision total traction time (minutes): 1 # of pulls: 1 # of popoffs: 0 Vacuum type: Kiwi Vacuum detail: not > recommended range, always in recommend range, press. reduced betw UC's, adv. in s tation w/ea pull, appropriate cup placement, matern tiss excl from cup Extraction outcome: extraction successful head assessment: normal Shoulder dystocia present: no Note dictated: No Additional comments: cord blood collection for donation the [facility] Blood Loss/Details Blood loss at delivery: <1000 ml, no more than e xpected EBL at delivery (ml's): 200 Electronically Signed by Chica Joseph MD on at 1945 RPT #:[id number] END OF REPORT 2020-11-03 14:13:00-00:00 [facility] ([facility]) OB Admission / H P REPORT#:[id number] REPORT STATUS: Signed DATE:11/03/20 TIME: 1412 PATIENT: DARIUS RAZO UNIT #: [id number] ROOM/BED: [facility] : 84 AGE: 35 SEX: F ATTEND: Anthony Tabares MD ADM AUTHOR: Chica Joseph MD * ALL edits or amendments must be made on the el ectronic/computer document * OB History Chief complaint: uterine contractions HPI: 35 yo with SIUP @ 37w6d regular UC's increasing in intensity since am +FM denies VB/LOF/MONTOYA history: : 4 Term: 2 : 0 Abortus: 1 Living children: 2 Complications (prev preg): none Current : Best EDC: 11/18/20 Admission EGA (weeks) 37 Admission EGA (days) 6 EDC based on: ultrasound, 1st trimester Conditions of : anemia, AMA Labs: Blood type: B Rh: positive Rubella: immune HIV: negative STD: negative Syphilis: currently negative GBS: negative Procedures: genetic testing Genetic testing: negative carrier screening norm al NIPS Past History Past Medical History: Denies: Alcoholism/subst abu se, Anemia, Arthritis, Asthma, Atrial fibrillation, Cancer, Congestive heart failure, COPD, Coronary artery disease, Dementia, Depression/mood disorder, Diabetes mellitus, SATNAM D/gastritis, Hypertension, Kidney disease/stones, Seizu re disorder, Transient ischemic attack, , Abdominal aortic aneurysm, ADD/AD HD, AIDS, Angina pectoris, Anticoagulant therapy, Atrial flutter, B leeding disorder, BPH, C diff colitis, Cardiac dysrhythmias, Chronic pain, Cirrhosis, C ongenital anomalies, Dyslipidemia, Gallbladder dis/stones, GI bleed, Glaucoma, Headache disorder, Hepatitis, HIV, Intracranial hemorrhage, Ischemi c stroke, Motor dysfunction, Pancreatitis, Peptic ulcer disease, Periph arter ial disease, Pressure ulcer, Prior [place], Schizophrenia, Sickle cell disease, St eroid use, Thyroid disorder, Transfusion history, Tuberculosis, Urinary tract infection, Venous thromboembolism. Additional Medical History: anxiety ulcerative colitis Past Surgical History: Denies: Abdominal surgery, Appendectomy, Bariatr ic procedure, CABG, Carotid endarterectomy, Cholecystectomy, , Dial ysis shunt/AV fistula, Heart valve procedure, Hernia repair, Hysterectomy, Pa cemaker, Spine surgery, Splenectomy, Tonsillectomy, Transplant recipient, Vascular procedure, , Amputation, Anesthesia complications, Bilateral tubal ligation, Bladder surgery, Breast biopsy/procedure, Carpal tunnel release, Cranial procedure, D C, Eye surgery, Feeding tube, Hip p rocedure, ICD, Indwelling IV catheter, Knee procedure, Li thotripsy, Lung surgery, Nephrectomy, PCI, Prostate surgery, Thyroidectomy, Tracheotomy, 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 Additional Surgical History: wisdom teeth extraction lazy eye repair (left) Family History Reports: Hypertension (father). Denies: Abdomina l aortic aneurysm, Anemia, Asthma, CAD < 40 yrs old, Cancer, Coagulopathy, Dementia/Alzheimer's dis, Depression/mood disorder, Diabetes, Heart diseas e, Kidney disease/stones, Seizure disorder, Stroke/TIA, Subarachnoid hemor rhage, Sudden cardiac , Thyroid disorder, , Connective tissue dis, Gallbladder disease, Hyperlipidemia, Neurofibromatosis, Sick le cell disease. Alcohol Use Denies EtOH use Drug Use Denies recreational drugs Smoking status: Smoking status for patients 13 years old or old er: Never Smoker Medications: Home Medications: SERTRALINE (ZOLOFT) 50 MG PO DAILY FERROUS SULFATE (FEOSOL) 325 MG PO BID azaTHIOprine (IMURAN) 50 MG PO DAILY PNV/FE FUM/FA ( MULTIVITAMIN) 1 TAB PO D AILY Allergies: Coded Allergies: penicillin G (Intermediate, HIVES 11/03/20) Review of Systems Constitutional: Denies: chills, fever, malaise. Skin: Denies: rash. Respiratory: Denies: SOB, wheezing. Cardiovascular: Denies: chest pain, palpitations. GI: Denies: diarrhea, nausea, vomiting. : Denies: dysuria, urgency. Neuro: Denies: dizziness, focal weakness, headache, lig htheaded, numbness, seizure, spinning sensation, syncope, vision change, weak ness. Psych: anxiety, stress. Denies: depression. Objective General VS: PATIENT WEIGHT: Weight (lb): Weight (oz): Weight (kg): Physical Exam HEENT: normocephalic w/o injury Cardiac: regular rate and rhythm, no clinically sig murmur Lungs: clear to auscultation, unlabored breathin g Breasts: deferred Neuro: Exam: alert, oriented x3, normal speech Abdomen: gravid, soft, no abnormal tenderness, n o guarding, no rebound tenderness, normoactive bowel sounds Uterine activity: Monitor: toco Pelvic exam: Pelvis clinically adequate: yes Cervical/ exam: Dilatation (cm): 5 (by) Suspected macrosomia: No Suspected > 5000 grams: No presentation: cephalic Membranes: Membranes: Intact Lower extremities: Edema: trace Calf tenderness: negative Baby A: Baby A baseline: 125 bpm Baby A variability: moderate 6-25 bpm Baby A accelerations: 15 X 15 Baby A decelerations: none Baby A FHR category: category 1 Result Findings/Data: Laboratory Tests: 11/03 1348 Serology SARS-CoV-2 Ag (Rapid) (NEGATIVE) NEGATIVE Results: vital signs stable Diagnosis, Assessment Plan Diagnosis, Assessment Plan Problem List/A P: 1. with 37 or more completed weeks ge station 2. Spontaneous onset of labor 3. AMA (advanced maternal age) multigravida 35+ Assessment/Impression: spont.active labor<39 wks Plan: admit to inpatient, delivery, transfer to [facility] Consultation(s): Consultation performed: anesthesia Electronically Signed by Chica Joseph MD on at 1458 RPT #:[id number] END OF REPORT
[2022-12-26] MEDS ORDERED: MORPHINE 4 MG/ML SYR ONE (18:23)
[2022-12-26] MEDS ORDERED: ONDANSETRON 4 MG/2 ML VIAL ONE (18:23)
[2022-12-26 19:01] LABS: Specific Gravity 1.016 (1.005-1.030)
[2022-12-26 19:03] LABS: Specific Gravity 1.016 (1.005-1.030); Urine Bacteria <20 /HPF (<20); Urine Bilirubin NEGATIVE (Negative); Urine Blood Trace (Negative); Urine Clarity Extremely Turbid (Clear); Urine Color Light-Yellow (Yellow); Urine Crystals Unidentified Few /HPF (None Seen); Urine Glucose NEGATIVE (Negative); Urine Mucus Slight /HPF (None Seen); Urine Protein NEGATIVE (Negative); Urine RBC <5 /HPF (None Seen); Urine Urobilinogen Normal (Normal); Urine WBC Clump Rare /HPF (None Seen); Urine pH 6.5 (5.0-7.0)
[2022-12-26 19:04] LABS: Absolute Lymphocytes (CBC) 2.1 K/uL (0.7-4.9); Hematocrit 34.3 % (36.0-45.0); Lymphocytes % 18.9 % (15.3-44.8); MCV 72.5 fL (80-100); MPV 7.6 fL (7.6-11.3); Platelets 421 thou/uL (152-406); RBC Red Blood Cell Count 4.72 M/uL (3.86-4.86)
[2022-12-26 19:19] LABS: Albumin 3.8 g/dL (3.4-5.0); Bilirubin Direct 0.1 mg/dL (0-0.2); Bilirubin Indirect, Calculated 0.2 mg/dL (0.2-0.8); Bilirubin Total 0.3 mg/dL (0.2-1.0); Magnesium 1.9 mg/dL (1.6-2.4); Potassium 3.2 mEq/L (3.5-5.1); Protein, Total 8.7 g/dL (6.4-8.2); Troponin High Sensitivity 7.9 pg/mL (<58.9)
--- NOTE | 2022-12-26 20:03 | RAD REPORT ---
EXAM DESCRIPTION: CT - Chest For Pe Angio - 12/26/2022 7:49 pm CLINICAL HISTORY: CHEST PAIN COMPARISON: No comparisons TECHNIQUE: Dynamically enhanced axial 3 mm thick images of the chest were obtained during administra tion of <100> mL Isovue 370 IV contrast. Coronal and oblique reconstruction images were generated and reviewed. Exam utilizes a protocol for optimal evaluation of pulmonary arterial tree. Maximum intensity projections 3D imaging was utilized All CT scans are performed using dose optimization technique as appropriate and may include automated exposure control or mA/KV adjustment according to patient size. FINDINGS: Chest Wall: No suspicious thyroid nodules or pathologic lymphadenopathy. Lungs: No acute abnormality. Pleura: No significant effusions or pneumothorax. Mediastinum/mirella: No pathologic lymphadenopathy. Pulmonary arteries/Aorta: No filling defect identified. No aortic aneurysm. Heart: No significant pericardial effusion. Normal heart size. Upper abdomen: No acute abnormality. Bones: No acute abnormality. IMPRESSION: Negative for pulmonary embolism. No acute findings in the chest.
--- NOTE | 2022-12-26 20:06 | RAD REPORT ---
EXAM DESCRIPTION: CTAbdomen Pelvis W Contrast - 12/26/2022 7:49 pm CLINICAL HISTORY: ab pain, flank pain COMPARISON: Abdomen Pelvis W Contrast dated 06/02/2019; CT ABD PELVIS W CONTRAST dated 09/10/2012; Ab domen WWo Cont dated 09/18/2022 TECHNIQUE: CT of the abdomen and pelvis was performed with IV contrast. All CT scans are performed using dose optimization technique as appropriate and may include automated exposure control or mA/KV adjustment according to patient size. FINDINGS: Lower chest: No acute abnormality. Liver: No acute abnormality or suspicious lesions. Biliary: No biliary ductal dilatation. Cholecystectomy Stomach: No significant focal abnormality. Duodenum: No significant focal abnormality. Pancreas: No significant abnormality. Spleen: No significant abnormality. Adrenal: No suspicious lesions. Kidney/ureter: No hydronephrosis. No renal calculi. Retroperitoneum: No retroperitoneal adenopathy. Vascular: No aneurysm. Bowel: Long segment wall thickening extending from the transverse colon to the rectum. The findings a re more pronounced the sigmoid colon rectum. No appendicitis.. Peritoneum: No ascites or free air. Bladder: Grossly unremarkable. Reproductive: No adnexal masses. Bones: No acute fracture. Other: n/a IMPRESSION: Long segment wall thickening involving the colon and rectum consistent with the presence of a colitis. This could be secondary to infectious or inflammatory etiologies including inflammator y bowel disease. No stricture common bowel obstruction, or fistula. .
--- NOTE | 2022-12-26 20:20 | EDPHYS ---
Physician Documentation [facility] Name: Uzma Barcenas Age: 37 yrs Sex: Female : 1985 Arrival Date: 12/26/2022 Time: 17:49 Bed 14 Private MD: ED Physician Brian Miramontes HPI: 12/26 20:25 This 37 yrs old Female presents to ER via Ambulatory with complaints of Abdominal Pain, rt Chest Pain, Breathing Difficulty. 20:25 Patient presents to the ED with a lower back pain rating to the chest with associated rt shortness of breath starting today. She does have a history of ulcerative colitis as well as kidney stones. She reports nausea without vomiting. Denies other acute complaints at this time. Symptoms are moderate severity, aching in nature, no other aggravating alleviating factors . Historical: - Allergies: 17:56 PENICILLINS; cm10 - PMHx: 17:56 Anemia; Kidney stones; ulcerative colitis; cm10 - PSHx: 17:56 Cholecystectomy; cm10 - Immunization history:: Adult Immunizations unknown. - Social history:: Smoking status: Patient denies any tobacco usage or history of. - Family history:: not pertinent. ROS: 20:25 Constitutional: Negative for fever, chills, and weight loss, MS/Extremity: Negative for rt injury and deformity, Skin: Negative for injury, rash, and discoloration, Neuro: Negative for headache, weakness, numbness, tingling, and seizure, Psych: Negative for depression, anxiety, suicide ideation, homicidal ideation, and hallucinations. 20:25 Cardiovascular: Positive for chest pain, Negative for edema. 20:25 Respiratory: Positive for shortness of breath, Negative for cough. 20:25 Abdomen/GI: Positive for abdominal pain, nausea. 20:25 Back: Positive for pain at rest, Negative for injury or acute deformity. Exam: 20:25 Constitutional: This is a well developed, well nourished patient who is awake, alert, rt and in no acute distress. Head/Face: Normocephalic, atraumatic. Chest/axilla: Normal chest wall appearance and motion. Nontender with no deformity. No lesions are appreciated. Cardiovascular: Regular rate and rhythm with a normal S1 and S2. No gallops, murmurs, or rubs. Normal PMI, no JVD. No pulse deficits. Respiratory: Lungs have equal breath sounds bilaterally, clear to auscultation and percussion. No rales, rhonchi or wheezes noted. No increased work of breathing, no retractions or nasal flaring. Skin: Warm, dry with normal turgor. Normal color with no rashes, no lesions, and no evidence of cellulitis. MS/ Extremity: Pulses equal, no cyanosis. Neurovascular intact. Full, normal range of motion. Neuro: Awake and alert, GCS 15, oriented to person, place, time, and situation. Cranial nerves II-XII grossly intact. Motor strength 5/5 in all extremities. Sensory grossly intact. Cerebellar exam normal. Normal gait. Psych: Awake, alert, with orientation to person, place and time. Behavior, mood, and affect are within normal limits. 20:25 ECG was reviewed by the Attending Physician. 20:25 Abdomen/GI: Mild tenderness diffusely without rebound, guarding, distention. Vital Signs: 17:54 Pulse 79; Resp 18; Temp 99.2; Pulse Ox 100% ; Weight 52.16 kg; Height 5 ft. 0 in. ; cm10 Pain 10/10; 18:59 BP 124 / 72; Pulse 70; Resp 16 S; Pulse Ox 97% on R/A; kc6 17:54 Body Mass Index 22.46 (52.16 kg, 152.4 cm) cm10 17:54 Pain Scale: Adult cm10 MDM: 17:59 Patient medically screened. rt 20:25 Differential diagnosis: Pulmonary embolism, pneumonia, pneumothorax, acute coronary rt syndrome, renal colic, pyelonephritis, ulcerative colitis, bowel obstruction. HEART Score: History: Slightly Suspicious (0), ECG: Normal (0), Age: < or = 45 years (0), Risk Factors: No Risk Factors Known (0), Troponin: < or = 1 x Normal Limit (0), Total Score = 0. Data reviewed: vital signs, nurses notes, lab test result(s), EKG, radiologic studies. Consideration of Admission/Observation Escalation of care including admission/observation considered. Stable labs, vital signs symptoms are consistent with an ulcerative colitis flare, significantly improving with pain medications in the ED. No immediate indications for admission to the hospital, discussed this at length with the patient. She is comfortable with trial of outpatient steroids as well as pain medications with close outpatient follow-up with her plumber's helper. She will return if she develops worsening symptoms or new concerning symptoms.. I considered the following discharge prescriptions or medication management in the emergency department Medications were administered in the Emergency Department. See MAR. Independent interpretation of the following test(s) in the Emergency Department CT Scan: My interpretation is No pneumothorax and on interpretation of the CT scan image. Counseling: I had a detailed discussion with the patient and/or guardian regarding the historical points, exam findings, and any diagnostic results supporting the discharge/admit diagnosis, lab results, radiology results, the need for outpatient follow up, to return to the emergency department if symptoms worsen or persist or if there are any questions or concerns that arise at home. Response to treatment: the patient's symptoms have markedly improved after treatment. 12/26 18:10 Order name: Basic Metabolic Panel; Complete Time: 19:21 rt 12/26 18:10 Order name: CBC with Diff; Complete Time: 19:21 rt 12/26 18:10 Order name: LFT's; Complete Time: 19:21 rt 12/26 18:10 Order name: Magnesium; Complete Time: 19:21 rt 12/26 18:10 Order name: Troponin HS; Complete Time: 19:21 rt 12/26 18:10 Order name: UAM; Complete Time: 19:21 rt 12/26 18:10 Order name: PREGU; Complete Time: 19:21 rt 12/26 18:10 Order name: Lipase; Complete Time: 19:21 rt 12/26 18:10 Order name: CT Chest For PE Angio; Complete Time: 20:08 rt 12/26 18:10 Order name: CT Abd/Pelvis - IV Contrast Only; Complete Time: 20:08 rt 12/26 18:10 Order name: EKG; Complete Time: 18:10 rt 12/26 18:10 Order name: Cardiac monitoring; Complete Time: 18:51 rt 12/26 18:10 Order name: EKG - Nurse/Tech; Complete Time: 18:40 rt 12/26 18:10 Order name: IV Saline Lock; Complete Time: 18:51 rt 12/26 18:10 Order name: Labs collected and sent; Complete Time: 18:51 rt 12/26 18:10 Order name: O2 Per Protocol; Complete Time: 18:40 rt 12/26 18:10 Order name: O2 Sat Monitoring; Complete Time: 18:40 rt EC:25 Rate is 64 beats/min. Rhythm is regular, Normal Sinus Rhythm with No ectopy. QRS [place]on rt is Normal. OR interval is normal. QRS interval is normal. QT interval is normal. No Q waves. T waves are Normal. No ST changes noted. Interpreted by me. Administered Medications: 18:57 Drug: morphine IVP or IV 4 mg Route: IVP; Infused Over: 4 mins; Site: right antecubital;kc6 19:50 Follow up: Response: No adverse reaction; Marked relief of symptoms; Pain is decreased pf1 18:57 Drug: Ondansetron IVP 4 mg Route: IVP; Site: right antecubital; kc6 19:50 Follow up: Response: No adverse reaction; Marked relief of symptoms pf1 20:35 Drug: MethylPrednisoLONE IVP 125 mg Route: IVP; Site: right antecubital; pf1 20:37 Follow up: Response: No adverse reaction; Marked relief of symptoms pf1 Disposition Summary: 12/26/22 20:19 Discharge Ordered Location: Home rt Problem: an acute exacerbation rt Symptoms: have improved rt Condition: Stable rt Diagnosis - Ulcerative colitis flare rt Followup: rt - With: Ja Delgado MD - When: 5 - 6 days - Reason: Followup: rt - With: Emergency Department - When: As needed - Reason: Worsening of condition Discharge Instructions: - Discharge Summary Sheet rt - Ulcerative Colitis, Adult rt Forms: - Medication Reconciliation Form rt - Thank You Letter rt - Antibiotic Education rt - Prescription Opioid Use rt - Patient Portal Instructions rt - Leadership Thank You Letter rt Prescriptions: - acetaminophen-codeine 300-30 mg Oral tablet - take 1 tablet by ORAL route every 6 hours as needed for pain; 21 tablet; rt Refills: 0, Product Selection Permitted - ondansetron 4 mg Oral Tablet,disintegrating - take 1 tablet by ORAL route every 6 hours for 4 days As needed for nausea, rt vomiting; 21 tablet; Refills: 0, Product Selection Permitted - Prednisone 20 mg Oral Tablet - take 2 tablets by ORAL route once daily for 5 days; 10 tablet; Refills: 0, rt Product Selection Permitted Signatures: Dispatcher [employer] Pallavi Jorge RN RN kc6 Brian Miramontes MD MD rt Sola Melchor RN RN pf1 Margie Coyle RN RN cm10 Corrections: (The following items were deleted from the chart) 17:57 17:56 Allergies: Codeine; cm10 cm10
--- NOTE | 2022-12-26 20:20 | ER ---
Nurse's Notes [facility] [place] Name: Uzma Barcenas Age: 37 yrs Sex: Female : 1985 Arrival Date: 12/26/2022 Time: 17:49 Bed 14 Private MD: Diagnosis: Ulcerative colitis flare Presentation: 12/26 17:54 Chief complaint: Patient states: low back pain chest pain and shortness of breath onset cm10 20 minutes [employer]JECT [employer]NAGEMENT [employer]. Coronavirus screen: Vaccine status: Patient reports receiving the 2nd dose of the covid vaccine. Client denies travel out of the [place] in the last 14 days. Ebola Screen: Patient denies travel to an Ebola-affected area in the 21 days before illness onset. No symptoms or risks identified at this time. Initial Sepsis Screen: Does the patient meet any 2 criteria? No. Patient's initial sepsis screen is negative. Does the patient have a suspected source of infection? No. Patient's initial sepsis screen is negative. 17:54 Method Of Arrival: Ambulatory cm10 17:56 Risk Assessment: Do you want to hurt yourself or someone else? Patient reports no cm10 desire to harm self or others. Onset of symptoms was December 26, 2022. 17:56 Acuity: MILAD 3 cm10 Historical: - Allergies: 17:56 PENICILLINS; cm10 - PMHx: 17:56 Anemia; Kidney stones; ulcerative colitis; cm10 - PSHx: 17:56 Cholecystectomy; cm10 - Immunization history:: Adult Immunizations unknown. - Social history:: Smoking status: Patient denies any tobacco usage or history of. - Family history:: not pertinent. Screenin:58 [facility] ED Fall Risk Assessment (Adult) History of falling in the last 3 months, kc6 including since admission No falls in past 3 months (0 pts) Confusion or Disorientation No (0 pts) Intoxicated or Sedated No (0 pts) Impaired Gait No (0 pts) Mobility Assist Device Used No (0 pt) Altered Elimination No (0 pt) Score/Fall Risk Level 0 - 2 = Low Risk. Abuse screen: Denies threats or abuse. Denies injuries from another. Nutritional screening: No deficits noted. Tuberculosis screening: No symptoms or risk factors identified. Assessment: 18:59 General: Appears in no apparent distress. comfortable, Behavior is calm, cooperative, kc6 appropriate for age. Pain: Complains of pain in back, chest and abdomen. Neuro: Level of Consciousness is awake, alert, obeys commands, Oriented to person, place, time, situation, Appropriate for age. Cardiovascular: Capillary refill < 3 seconds. Respiratory: Reports shortness of breath Airway is patent Trachea midline Respiratory effort is even, unlabored, Respiratory pattern is regular, symmetrical. GI: No signs and/or symptoms were reported involving the gastrointestinal system. Bowel sounds present X 4 quads. Abd is soft and non tender X 4 quads. : No signs and/or symptoms were reported regarding the genitourinary system. EENT: No signs and/or symptoms were reported regarding the EENT system. Derm: No signs and/or symptoms reported regarding the dermatologic system. Skin is intact, is healthy with good turgor, Skin is pink, warm \T\ dry. Musculoskeletal: No signs and/or symptoms reported regarding the musculoskeletal system. Circulation, motion, and sensation intact. Capillary refill < 3 seconds, Range of motion: intact in all extremities. Vital Signs: 17:54 Pulse 79; Resp 18; Temp 99.2; Pulse Ox 100% ; Weight 52.16 kg; Height 5 ft. 0 in. ; cm10 Pain 10/10; 18:59 BP 124 / 72; Pulse 70; Resp 16 S; Pulse Ox 97% on R/A; kc6 17:54 Body Mass Index 22.46 (52.16 kg, 152.4 cm) cm10 17:54 Pain Scale: Adult cm10 ED Course: 17:50 Patient arrived in ED. rg4 17:56 Triage completed. cm10 17:57 Arm band placed on Patient placed in an exam room. cm10 17:58 Brian Miramontes MD is Attending Physician. rt 18:06 Pallavi Soriano, VANNESA is Primary Nurse. kc6 18:50 Inserted saline lock: 20 gauge in right antecubital area, using aseptic technique. aw1 18:50 Initial lab(s) drawn, by me, sent to lab. aw1 18:50 EKG done, by ED staff. aw1 18:58 Patient has correct armband on for positive identification. Placed in gown. Bed in low kc6 position. Call light in reach. Side rails up X 1. Adult w/ patient. 19:50 Note: new line placed in left AC, 22 diff.. eh4 19:51 CT Chest For PE Angio In Process Unspecified. EDMS 19:51 CT Abd/Pelvis - IV Contrast Only In Process Unspecified. EDMS 20:18 Ja Delgado MD is Referral Physician. rt 20:37 No provider procedures requiring assistance completed. IV discontinued, intact, pf1 bleeding controlled, No redness/swelling at site. Pressure dressing applied. 20:38 Provided Education on: mediation administration. pf1 Administered Medications: 18:57 Drug: morphine IVP or IV 4 mg Route: IVP; Infused Over: 4 mins; Site: right antecubital;kc6 19:50 Follow up: Response: No adverse reaction; Marked relief of symptoms; Pain is decreased pf1 18:57 Drug: Ondansetron IVP 4 mg Route: IVP; Site: right antecubital; kc6 19:50 Follow up: Response: No adverse reaction; Marked relief of symptoms pf1 20:35 Drug: MethylPrednisoLONE IVP 125 mg Route: IVP; Site: right antecubital; pf1 20:37 Follow up: Response: No adverse reaction; Marked relief of symptoms pf1 Medication: 20:38 VIS not applicable for this client. pf1 Outcome: 20:19 Discharge ordered by MD. rt 20:37 Discharged to home ambulatory. pf1 20:37 Condition: improved 20:37 Discharge instructions given to patient, family, Instructed on discharge instructions, follow up and referral plans. Demonstrated understanding of instructions, follow-up care, medications, Prescriptions given X 3. 20:38 Patient left the ED. pf1 Signatures: Dispatcher [employer] EDDE Gilma Gallegos 4 Pallavi Soriano RN RN 6 Shanna Birch 4 Brian Miramontes MD MD rt Sola Melchor RN RN pf1 Margie Coyle RN RN cm10 [place] aw1 Corrections: (The following items were deleted from the chart) 17:57 17:56 Allergies: Codeine; cm10 cm10
[2022-12-26] MEDS ORDERED: METHYLPREDNISOLONE 125 MG INJ ONE (20:37)
[2022-12-26 20:50] VITALS: TEMP 99.2
[2022-12-26 20:51] VITALS: BP 124/72; O2SAT 97
--- NOTE | 2022-12-27 13:57 | EKG ---
Test Date: 2022-12-26 Test Time: 17:58:23 [employer] Dredge Operator: PATY MEASUREMENT RESULTS: Intervals: Rate: 64 UT: 142 QRSD: 88 QT: 404 QTc: 416 Brandon: P: UT: 142 QRS: 71 T: 65 INTERPRETIVE STATEMENTS: Normal sinus rhythm Normal ECG Compared to ECG 07/01/2022 13:19:44 No significant changes Electronically Signed On 12-27-22 13:55:18 CDT by William Palacios
== END 2022-12-26 20:38 | disposition home or self-care (01) ==
LOC: ER 17:49
DX: K51.90 Ulcerative colitis, unspecified, without complications (principal); Z88.0 Allergy status to penicillin; Z87.442 Personal history of urinary calculi
CPT/HCPCS: 93005; 85025; 81001; 80048; 36415; 83735; 81025; 80076; 84484; 83690; 71275; 74177; 96375; 96374; 99284; Q9967; J2930; J2405